=== PATIENT | male | born 1940 | race African-American/Black ===

== ENCOUNTER 2017-12-28 15:49 | Emergency (ER) | payer MEDICARE, OTHER ==
[2017-12-28] MEDS ORDERED: DIPHTH,PERTUSS(ACELL),TET TOX 0.5 ML DISP.SYRIN. VAX IM ONE (16:15)
[2017-12-28 16:21] VITALS: BP 132/59
--- NOTE | 2017-12-28 16:47 | PHYS DOC ---
General Chief Complaint: LACERATION/AVULSION Stated Complaint: LAC Time Seen by MD: 16:01 Source: patient Exam Limitations: no limitations Problems: History of Present Illness Initial Comments Patient is a 77-year-old male who comes in the ED complaining of puncture wound to dorsal left wrist. Patient states that immediately prior to arrival he was working and cleaning some pictures when a piece of glass fell out puncturing the dorsal aspect of his left wrist. States that bleeding was heavy initially he felt that it was spurting so he wrapped it and came in for evaluation. On arrival bleeding has stopped patient is in no apparent distress tetanus status is not up-to-date. Denies any other complaints. Onset: just prior to arrival Severity: mild Pain/Injury Location: left wrist Method of Injury: incised Modifying Factors: worse with jarring, worse with movement, improves with rest Allergies: Coded Allergies: No Known Drug Allergies (Unverified , 12/28/17) Past Medical History Medical History: hypertension Surgical History: noncontributory Social History Smoker: quit greater than 1 year Alcohol: none Drugs: none Review of Systems Constitutional: denies chills, denies diaphoresis, denies fever Respiratory: denies cough, denies shortness of breath Cardiovascular: denies chest pain, denies palpitations Gastrointestinal: denies nausea, denies vomiting Musculoskeletal: denies back pain, denies joint pain, denies joint swelling, denies neck pain Skin: see HPI Psychiatric/Neurological: denies numbness, denies paresthesia Physical Exam General Appearance: WD/WN, no apparent distress Cardiovascular/Respiratory: normal peripheral pulses, no respiratory distress Elbow/Forearm: normal inspection, non-tender, normal ROM Wrist: non-tender (3 mm superficial triangular shaped flap puncture bleeding is stopped and contused tissue or foreign bodies noted.), normal ROM Hand: normal inspection, non-tender, normal ROM Neurologic/Tendon: normal sensation, normal motor functions, normal tendon functions, no evidence tendon injury Psychiatric: alert, oriented x 3 Skin: warm/dry (puncture wound as above) Orders, Labs, Meds Was cleansed by ED staff and tissue adhesive applied. An overlying sterile dressing tetanus status updated. Departure Time of Disposition: 16:45 Disposition: 01 HOME, SELF-CARE Diagnosis: puncture wound left hand Condition: GOOD Patient Instructions: Tissue Adhesive Wound Care, [id number], VIS, Tetanus, Diphtheria (Td); Tetanus, Diphtheria, Pertussis (Tdap) - CDC Additional Instructions: Please review the patient education materials given by ED staff. Keep wound covered with sterile dressing until completely healed. Keep wound dry for 48 hours. After 48 hours may wash briefly with soap and warm water, blot dry. Change dressing after each wash. [id number] Tylenol as needed for discomfort. Follow-up with her doctor in 3-5 days for a wound check. Return to ED with new or changing symptoms. GORDON NOVAK DO Dec 28, 2017 16:47
== END 2017-12-28 16:53 | disposition home or self-care (01) ==
LOC: ER 15:49
DX: S61.432A Puncture wound without foreign body of left hand, initial encounter (principal); Z87.891 Personal history of nicotine dependence; I10 Essential (primary) hypertension; W25.XXXA Contact with sharp glass, initial encounter; Y93.E9 Activity, other interior property and clothing maintenance; Y99.8 Other external cause status; Y92.89 Other specified places as the place of occurrence of the external cause
CPT/HCPCS: 12002; 90471; 90715; 99283-25

== ENCOUNTER 2019-04-02 13:35 | Emergency (ER) | payer MEDICARE, OTHER ==
[~2019-04-02] VITALS: Ht 172.7 cm; Wt 71.9 kg
[2019-04-02 13:35] VITALS: BP 122/58
--- NOTE | 2019-04-02 14:39 | PHYS DOC ---
Past History Past Medical History: Hypertension Past Surgical History: No Surgical History Alcohol Use: None Drug Use: None Adult General Chief Complaint Chief Complaint: FINGER INJURY HPI HPI 78-year-old male presents with cuts of his left ring finger. The patient was doing some trimming at his house and somehow the tremor pinched his finger. He put some cuts in his skin, but it did not really bleed. He washed it out thoroughly with water. He came because he wasn't sure if it would need to be a stitched. His last tetanus was one year ago. He denies any other injuries or complaints. He has full motion of his finger Review of Systems Review of Systems Constitutional: Denies fever or chills [] Eyes: Denies change in visual acuity, redness, or eye pain [] HENT: Denies nasal congestion or sore throat [] Respiratory: Denies cough or shortness of breath [] Cardiovascular: No additional information not addressed in HPI [] GI: Denies abdominal pain, nausea, vomiting, bloody stools or diarrhea [] : Denies dysuria or hematuria [] Musculoskeletal: Denies back pain or joint pain [] Integument: Cuts in the left ring finger[] Neurologic: Denies headache, focal weakness or sensory changes [] Endocrine: Denies polyuria or polydipsia [] All other systems were reviewed and found to be within normal limits, except as documented in this note. Allergies Allergies Allergies Coded Allergies Type Severity Reaction Last Updated Verified No Known Drug Allergies 12/28/17 No Physical Exam Physical Exam Constitutional: Well developed, well nourished, no acute distress, non-toxic appearance. [] HENT: Normocephalic, atraumatic, bilateral external ears normal, oropharynx moist, no oral exudates, nose normal. [] Eyes: PERRLA, EOMI, conjunctiva normal, no discharge. [] Neck: Normal range of motion, no tenderness, supple, no stridor. [] Cardiovascular:Heart rate regular rhythm, no murmur [] Lungs & Thorax: Bilateral breath sounds clear to auscultation [] Abdomen: Bowel sounds normal, soft, no tenderness, no masses, no pulsatile masses. [] Skin: 1.5 cm zig zag laceration of the left ring finger[] Back: No tenderness, no CVA tenderness. [] Extremities: No tenderness, no cyanosis, no clubbing, ROM intact, no edema. [] Neurologic: Alert and oriented X 3, normal motor function, normal sensory function, no focal deficits noted. [] Psychologic: Affect normal, judgement normal, mood normal. [] EKG EKG [] Radiology/Procedures Radiology/Procedures [] Course & Med Decision Making Course & Med Decision Making Pertinent Labs and Imaging studies reviewed. (See chart for details) The patient's lacerations appear to be superficial and do not go away through the skin. I do not believe sutures are warranted. His tetanus is up-to-date. I was able to put 2 coatings of Dermabond over the wounds for skin protection and help it heal more quickly. The patient is stable for discharge at this time. [] Dragon Disclaimer Dragon Disclaimer This electronic medical record was generated, in whole or in part, using a voice recognition dictation system. Departure Departure: Impression: Primary Impression: Finger laceration Disposition: 01 HOME, SELF-CARE Condition: STABLE Referrals: AHMET ROBLES (PCP) Patient Instructions: Laceration Care, Adult, [id number] Problem Qualifiers Primary Impression: Finger laceration Encounter type: initial encounter Finger: ring finger Damage to nail status: without damage Foreign body presence: without foreign body Laterality: left Qualified Codes: S61.215A - Laceration without foreign body of left ring finger without damage to nail, initial encounter RO POWER DO April 02, 2019 14:39
== END 2019-04-02 14:45 | disposition home or self-care (01) ==
LOC: ER 13:35
DX: S61.215A Laceration without foreign body of left ring finger without damage to nail, initial encounter (principal); I10 Essential (primary) hypertension; W27.8XXA Contact with other nonpowered hand tool, initial encounter; Y93.H2 Activity, gardening and landscaping; Y92.89 Other specified places as the place of occurrence of the external cause; Y99.8 Other external cause status
CPT/HCPCS: 12001; 99283

== ENCOUNTER 2021-02-16 23:07 | Emergency (ER) | payer MEDICARE, OTHER ==
[~2021-02-16] VITALS: Ht 172.7 cm; Wt 76.8 kg
--- NOTE | 2021-02-17 01:15 | PHYS DOC ---
Past History Past Medical History: Anemia, Arthritis, CAD, Hypertension, Prostatitis, UTI Past Medical History Prostate cancer treated with radiation (AFUA WEAVER MD) Past Surgical History: No Surgical History (AFUA WEAVER MD) Alcohol Use: None Drug Use: None (AFUA WEAVER MD) General Adult EDM: Chief Complaint: DENTAL PROBLEM HPI: HPI: ".. I just dont feel well... I ve not be right since I got my tooth pulled.. and I had another one fall out... I seen [facility]...about two weeks ago.. and again yesterday.... She felt maybe ..,. I had a delayed reaction to the Moderna shot .. I got last month.... all I know is I don't feel like eating.. just feel sick..." I noticed the last week.. my urine gotten very dark.. almost black.. ".." My stomach been upset the past two weeks.. just don't feel right..just don't want to eat.." " This is my baby.. she tries to look after me.. she my daughter...:just talk to her anything about me..."'.. Patient is a 80 year old male retired of 35 yrs service in [employer] who presents with above hx and complaints of dental pain and generalized malaise the last 2 weeks. Patient has had a recent tooth extraction on left upper and also lost a left lower tooth in the last few days. Patient has had very poor intake for last couple weeks. Complains of nausea and generalized abdomen discomfort with nausea and vomiting.. Some right upper qu adrant discomfort. Patient denies any changes in meds. No recent travel. No specific ill contacts. Patient normally follows [facility]. Patient has past medical history of hypertension, prostate cancer, irregular heart rate, arthritis, anemia. Patient follows with [facility]. . The daughter advised her father normally very active but has been looking very rundown the last couple weeks. She advises that no one else in the family have been ill. Patient reportedly has been compliant with his meds at the [facility],The patient did receive both Moderna vaccinations, the last 1 over a month ago. (AFUA WEAVER MD) Review of Systems: Review of Systems: Constitutional: Denies fever or chills Eyes: Denies change in visual acuity HENT: Denies nasal congestion or sore throat. Complains of dental pain Respiratory: Denies cough or shortness of breath Cardiovascular: Denies chest pain or edema GI: Complains of generalized abdominal pain, nausea, vomiting,. Denies bloody stools or diarrhea : Denies dysuria Musculoskeletal: History of generalized malaise and joint pain Integument: Denies rash Neurologic: Denies headache, focal weakness or sensory changes Endocrine: Denies polyuria or polydipsia Lymphatic: Denies swollen glands Psychiatric: Denies depression or anxiety (AFUA WEAVER MD) Family History: Family History: Noncontributory to presentation (AFUA WEAVER MD) Current Medications: Current Meds: See nursing for home meds (AFUA WEAVER MD) Allergies: Allergies: Allergies Coded Allergies Type Severity Reaction Last Updated Verified No Known Drug Allergies 12/28/17 No (AFUA WEAVER MD) Physical Exam: PE: Constitutional:in acute distress, ill in appearance. [] HENT: Normocephalic, atraumatic, bilateral external ears normal, oropharynx moist, no oral exudates, nose normal. Recent loss of an upper and lower canine teeth on Lt.( 11 & 21) Eyes: PERRLA, EOMI, conjunctiva pale, no discharge. Jaundice Neck: Normal range of motion, no tenderness, supple, no stridor. [] Cardiovascular: Irregular heart rate regular rhythm, no murmur [. The] monitor shows an irregular sinus rhythm. Occasional PACs. Lungs & Thorax: Bilateral breath sounds equal apex with some scattered wheezes on auscultation [] Abdomen: Bowel sounds hyperactive, soft, generalized tenderness, no masses, no pulsatile masses. Distended. Tympanic. Rebound right upper quadrant. Skin: Warm, dry, no erythema, no rash. [] Back: No tenderness, no CVA tenderness. [] Extremities: No tenderness, no cyanosis, no clubbing, ROM intact, no edema. [] Arthritic changes. No psoas sign. Neurologic: Alert and oriented X 3, moves all extremities on request, does have distal sensory, no gross focal deficits noted. [] Psychologic: Affect anxious, judgement normal, mood normal. [] (AFUA WEAVER MD) Current Patient Data: Vital Signs: Vital Signs Date Time Temp Pulse Resp B/P (MAP) Pulse Ox O2 Delivery O2 Flow Rate FiO2 02/16/21 23:07 97.6 49 18 88/65 (73) 98 Room Air (AFUA WEAVER MD) EKG: EKG: My interpretation EKG shows a sinus rhythm at a ventricular rate of 72. Does have occasional premature atrial complexes. Contour abnormality consistent with septal and T wave infarct changes. No acute contralateral changes indicating acute NV. Abnormal EKG.[] (AFUA WEAVER MD) Radiology/Procedures: Radiology/Procedures: [[address] [address] IMAGING REPORT Signed PATIENT: COLLIN BOSWELL FACCOUNT: [id number] : 1940 LOCATION: ER AGE: 80 SEX: M EXAM STATUS: REG ER ORD. PHYSICIAN: AFUA WEAVER MD REASON: ileus, abdomen pain Omni 240 30ml, oral contrast only per GFR PROCEDURE: CT ABD PEL W/ORAL CONTRST ONLY Abdominal and Pelvis CT, Without Contrast: History: Reason: ileus, abdomen pain Omni 240 30ml, oral contrast only per GFR / Spl. Instructions: / History: Comparison: None. Procedure: Axial images are obtained of the abdomen and pelvis, without IV or oral contrast. Oral Contrast: Yes Findings: Evaluation of solid organs is limited without contrast. Linear opacities lung bases are likely discoid atelectasis. There is bilateral gynecomastia. The prostate is mildly enlarged. The gallbladder is distended the common bile duct is dilated to 2.6 cm however this no stones seen. The intrahepatic biliary tree is markedly dilated. The pancreatic duct is moderate to markedly dilated. Spleen: Normal. Adrenal Glands: Normal. Kidneys: There is a cyst in the right kidney. There is a small nonobstructive stone in the right kidney. The appendix is normal. Soft tissue density near the right inguinal canal could be from prior hernia repair.. There is no free air or free fluid. There is no lymphadenopathy. The urinary bladder appears normal. There is no pericolonic inflammation identified. Impression: Dilated intrahepatic and extrahepatic biliary tree and dilated gallbladder. There are no stones in the common bile duct. Findings suggest a small mass in the distal common bile duct or head of the pancreas although the mass is not seen. Consider ERCP. End impression PQRS Compliance Statement: One or more of the following individualized dose reduction techniques were utilized for this examination: 1. Automated exposure control 2. Adjustment of the mA and/or kV according to patient size 3. Use of iterative reconstruction technique Electronically signed by: Aurelia Brody III, MD (02/17/2021 5:31 AM) [facility] DICTATED AND SIGNED BY: AURELIA BRODY III, MD DATE: 02/17/21525 CC: AFUA WEAVER MD; PCP,UNKNOWN ~MTH0 0 ][place] [address] IMAGING REPORT Signed PATIENT: COLLIN BOSWELL FACCOUNT: [id number] : 1940 LOCATION: ER AGE: 80 SEX: M EXAM STATUS: REG ER ORD. PHYSICIAN: AFUA WEAVER MD REASON: Abdomen pain, weakness, chills PROCEDURE: ACUTE ABDOMEN SERIES Acute Abdominal Series: Technique: PA view of the chest and supine and upright views of the abdomen were obtained. History: Pain. Comparison: None. Findings: The heart appears normal. The pulmonary vessels appear normal. There is linear opacities in the lung bases. There is air and stool scattered throughout portions the colon. There is air within a few loops of small bowel. There is no free air. Impression: 1. Mild basal infiltrates likely discoid atelectasis. 2. Abnormal bowel gas pattern could be a mild ileus or a distal partial small bowel obstruction. Electronically signed by: Aurelia Brody III, MD (02/17/2021 3:05 AM) [facility] DICTATED AND SIGNED BY: AURELIA BRODY III, MD DATE: 02/17/21302 CC: AFUA WEAVER MD; PCP,UNKNOWN ~MTH0 0 (AFUA WEAVER MD) Heart Score: C/O Chest Pain: No HEART Score for Chest Pain: HEART Score for Chest Pain Response (Comments) Value History Moderately Suspicious 1 ECG Nonspecific Repolarizatio 1 Age > 65 2 Risk Factors 1 or 2 Risk Factors 1 Troponin < Normal Limit 0 Total 5 Risk Factors: Risk Factors: DM, Current or recent (<one month) smoker, HTN, HLP, family history of CAD, obesity. Risk Scores: Score 0 - 3: 2.5% MACE over next 6 weeks - Discharge Home Score 4 - 6: 20.3% MACE over next 6 weeks - Admit for Clinical Observation Score 7 - 10: 72.7% MACE over next 6 weeks - Early Invasive Strategies (AFUA WEAVER MD) Course & Med Decision Making: Course & Med Decision Making Pertinent Labs and Imaging studies reviewed. (See chart for details) Daughter = Plan transfer to [facility] will most likely need an ERCP and stent. Discussed presentation, Hx. , testing and tx plan with Dr. Zhang. Advised transfer to [facility]. 05:15 hrs. Discussed presentaton, Hx., testing and tx. plan with Dr.'s Ureña, and . Nephrology call back pending at shift change, Critical Care = 90 min. Impression: 1. Acute hepatorenal syndrome-renal and hepatic failure 2. Anemia hemoglobin 11.6 with microcytic indices 3. Hyponatremia 132, 4. Hyperkalemia 5.3 5. Hyper magnesium 2.5 6. Elevated LFTs= bilirubin 32.3, direct 27.7, alk phos 1344, 7. Elevated amylase and lipase 221/921 8. Ileus 9. Dilated Intra and extra hepatic tree and gallbladder-suspect distal common duct and pancreatic mass [] (AFUA WEAVER MD) Course & Med Decision Making Patient is being transferred to [place] by Dr. Weaver. Dr. Willson the looping inspector at [place] did call after Dr. Weaver checked out this morning. I discussed the case with Dr. Willson who will consult. (DOMINGO BARBOSA MD) Campos Disclaimer: Campos Disclaimer: This electronic medical record was generated, in whole or in part, using a voice recognition dictation system. (AFUA WEAVER MD) Departure Departure: Referrals: PCP,UNKNOWN (PCP) Campos Disclaimer This chart was dictated in whole or in part using Voice Recognition software in a busy, high-work load, and often noisy Emergency Department environment. It may contain unintended and wholly unrecognized errors or omissions. (AFUA WEAVER MD) Dragon Disclaimer This chart was dictated in whole or in part using Voice Recognition software in a busy, high-work load, and often noisy Emergency Department environment. It may contain unintended and wholly unrecognized errors or omissions. (AFUA WEAVER MD) AFUA WEAVER MD Feb 17, 2021 01:15 DOMINGO BARBOSA MD Feb 17, 2021 06:46
--- NOTE | 2021-02-17 03:08 | RAD ---
Acute Abdominal Series: Technique: PA view of the chest and supine and upright views of the abdomen were obtained. History: Pain. Comparison: None. Findings: The heart appears normal. The pulmonary vessels appear normal. There is linear opacities in the lung bases. There is air and stool scattered throughout portions the colon. There is air within a few loops of sm all bowel. There is no free air. Impression: 1. Mild basal infiltrates likely discoid atelectasis. 2. Abnormal bowel gas pattern could be a mild ileus or a distal partial small bowel obstruction. Electronically signed by: Jak Trinidad III, MD (02/17/2021 3:05 AM) [facility]ENTER[facility]ETTY
[2021-02-17] MEDS: IV RINGERS SOLUTION,LACTATED 1,000 ML IV SCH (03:18)
[2021-02-17] MEDS: ONDANSETRON PF 4 MG/2 ML VIAL. IVP ONE (03:19)
[2021-02-17 03:49] LABS: BACTERIA,URINE FEW /HPF (0-FEW); CLARITY,URINE CLOUDY; COLOR,URINE BROWN; RBC,URINE OCC /HPF (0-2); SQUAMOUS EPITHELIAL CELL,UR OCC /LPF
[2021-02-17 03:52] LABS: BASO % 0 % (0-3); EOS # 0.1 x10^3/uL (0.0-0.7); EOS % 1 % (0-3); HEMATOCRIT 34.9 % (39.0-53.0); HEMOGLOBIN 11.6 g/dL (13.0-17.5); LYMPH # 5.2 x10^3/uL (1.0-4.8); LYMPH % 52 % (24-48); MEAN CORPUSCULAR HEMOGLOBIN 25 pg (25-35); MEAN CORPUSCULAR HGB CONC 33 g/dL (31-37); MEAN CORPUSCULAR VOLUME 74 fL (79-100); MONO # 1.2 x10^3/uL (0.0-1.1); MONO % 12 % (0-9); NEUT # 3.5 x10^3uL (1.8-7.7); NEUT % 35 % (31-73); PLATELET COUNT 321 x10^3/uL (140-400); RED BLOOD COUNT 4.71 x10^6/uL (4.30-5.70); RED CELL DISTRIBUTION WIDTH 16.9 % (11.5-14.5); WHITE BLOOD COUNT 10.1 x10^3/uL (4.0-11.0)
[2021-02-17 04:07] LABS: CALCIUM 9.7 mg/dL (8.5-10.1); CREATININE 2.6 mg/dL (0.7-1.3); GFR 28.7; POTASSIUM 5.3 mmol/L (3.5-5.1)
[2021-02-17] MEDS ORDERED: IOHEXOL 240 MG/ML 50ML VIAL. ONE (04:10)
[2021-02-17 04:12] LABS: % BANDS 1 % (0-9); % EOS 2 % (0-5); % LYMPHS 22 % (24-48); % MONOS 6 % (0-10); % SEGS 69 % (35-66); PLT ESTIMATE ADEQUATE (ADEQUATE)
[2021-02-17 04:13] LABS: ANISOCYTOSIS SLIGHT; HYPOCHROMIA SLIGHT; MICROCYTOSIS SLIGHT
[2021-02-17 04:15] LABS: BARBITURATES NEG (NEG); BENZODIAZEPINES NEG (NEG); CANNABINOIDS NEG (NEG); COCAINE NEG (NEG); METHADONE NEG (NEG); OPIATES NEG (NEG); PHENCYCLIDINE NEG (NEG)
[2021-02-17 04:17] LABS: AMPHETAMINE/METHAMPHETAMINE NEG (NEG)
[2021-02-17 04:31] LABS: ALBUMIN 3.3 g/dL (3.4-5.0); MAGNESIUM 2.5 mg/dL (1.8-2.4); TOTAL PROTEIN 7.1 g/dL (6.4-8.2)
[2021-02-17 04:43] LABS: DIRECT BILIRUBIN 27.7 mg/dL (0.0-0.2); TOTAL BILIRUBIN 32.3 mg/dL (0.2-1.0)
[2021-02-17] MEDS: IV NORMAL SALINE 1,000ML 1,000 ML IV ONE (04:51)
--- NOTE | 2021-02-17 04:54 | EKG ---
[address] [address] Test Date: 2021-02-17 Test Time: 03:01:16 Pat Name: COLLIN BOSWELL Department: Room: Gender: M Leaflet Or Newspaper Deliverer: : 1940 Requested By: AFUA WALSH Order Number: [id number] Reading MD: Measurements Intervals [place] Rate: 72 P: -22 [place]: 176 QRS: -28 QRSD: 120 T: 142 QT: 440 QTc: 489 Interpretive Statements SINUS RHYTHM ATRIAL PREMATURE COMPLEX(ES) LEFTWARD AXIS QRS(T) CONTOUR ABNORMALITY CONSISTENT WITH SEPTAL INFARCT PROBABLY OLD T ABNORMALITY IN LATERAL LEADS ABNORMAL ECG RI6.02 No previous ECG available for comparison
--- NOTE | 2021-02-17 05:33 | RAD ---
Abdominal and Pelvis CT, Without Contrast: History: Reason: ileus, abdomen pain Omni 240 30ml, oral contrast only per GFR / Spl. Instructions: / History: Comparison: None. Procedure: Axial images are obtained of the abdomen and pelvis, without IV or oral contrast. Oral Contrast: Yes Findings: Evaluation of solid organs is limited without contrast. Linear opacities lung bases are likely discoid atelectasis. There is bilateral gynecomastia. The prostate is mildly enlarged. The gallbladder is distended the common bile duct is dilated to 2.6 cm however this no stones seen. The intrahepatic biliary tree is markedly dilated. The pancreatic neda t is moderate to markedly dilated. Spleen: Normal. Adrenal Glands: Normal. Kidneys: There is a cyst in the right kidney. There is a small nonobstructive stone in the right kidn ey. The appendix is normal. Soft tissue density near the right inguinal canal could be from prior hernia repair.. There is no free air or free fluid. There is no lymphadenopathy. The urinary bladder appears normal. There is no pericolonic inflammation identified. Impression: Dilated intrahepatic and extrahepatic biliary tree and dilated gallbladder. There are no stones in th e common bile duct. Findings suggest a small mass in the distal common bile duct or head of the pancr eas although the mass is not seen. Consider ERCP. End impression PQRS Compliance Statement: One or more of the following individualized dose reduction techniques were utilized for this examinat ion: 1. Automated exposure control 2. Adjustment of the mA and/or kV according to patient size 3. Use of iterative reconstruction technique Electronically signed by: Jak Trinidad III, MD (02/17/2021 5:31 AM) [facility]
[2021-02-17 08:06] VITALS: BP 104/51
== END 2021-02-17 08:08 | disposition short-term general hospital (02) ==
LOC: ER 23:07
DX: N19 Unspecified kidney failure (principal); K76.7 Hepatorenal syndrome; K72.90 Hepatic failure, unspecified without coma; D64.89 Other specified anemias; E87.1 Hypo-osmolality and hyponatremia; E87.5 Hyperkalemia; E83.41 Hypermagnesemia; R79.89 Other specified abnormal findings of blood chemistry; R94.8 Abnormal results of function studies of other organs and systems; K56.7 Ileus, unspecified; K82.8 Other specified diseases of gallbladder; M19.90 Unspecified osteoarthritis, unspecified site; I25.10 Atherosclerotic heart disease of native coronary artery without angina pectoris; I10 Essential (primary) hypertension; Z87.440 Personal history of urinary (tract) infections
CPT/HCPCS: 36415; 74022; 74176; 80048; 80076; 80307; 81001; 82150; 82550; 83605; 83690; 83735; 83880; 84443; 84484; 85007; 85025; 85379; 85610; 85730; 86705; 86709; 86803; 87086; 87340; 93005; 96361; 96374; 99291; 99292; J2405; J7030; J7120